=== PATIENT | male | born 1965 | race Caucasian/White ===

== ENCOUNTER → 2020-06-30 12:06 | Outpatient (CLI) | payer OTHER, SELFPAY ==
--- NOTE | ~2020-06-30 | US_ITS ---
US abdomen complete EXAMINATION: US Abdomen Complete INDICATION: Elevated bilirubin. PROCEDURE: Realtime High Resolution abdomen ultrasound. COMPARISON: No prior studies for comparison FINDINGS: There are multiple mobile echogenic foci in the gallbladder a few of which appear to shadow , consistent with cholelithiasis. Common bile duct measures 4 mm. Liver echotexture within normal limits without focal mass. Pancreas within normal limits. Pancreati c tail is obscured by bowel gas. Spleen is unremarkeable. Renal echotexture is within normal limits bilaterally without hydronephrosis, contour deforming mass or renal stone. Right kidney measures 9.8 cm. Left kidney measures 9.1 cm. Visualized aspects of the aorta and IVC are within normal limits. Portal vein is patent. No sonograph ic Lilly's sign indicated by the technologist. IMPRESSION: 1: Cholelithiasis. No secondary findings to suggest cholecystitis. Reviewed, dictated and finalized at location B. TELLER
== END ==
DX: R17 Unspecified jaundice (principal); K80.20 Calculus of gallbladder without cholecystitis without obstruction
CPT/HCPCS: 76700